=== PATIENT | female | born 1980 | race Hispanic/Latino ===

== ENCOUNTER 2022-09-29 13:10 | Emergency (ER) | payer SELFPAY ==
[2022-09-29 13:29] VITALS: BP 101/68; PULSE 80; RESP 16; TEMP 36.3; O2SAT 99
--- NOTE | 2022-09-29 13:47 | ED.URI ---
HPI - URI/Sore Throat General Chief Complaint: Upper Respiratory Infection Stated Complaint: cough/congestion Time Seen by Provider: 09/29/22 13:50 Source: patient and RN notes reviewed Mode of arrival: ambulatory Limitations: no limitations History of Present Illness HPI Narrative: 42-year-old female presents to the [facility] with complaints of cough and congestion for 2 days. Patient was prescribed steroids and an inhaler at [facility] 2 days ago when her symptoms started. Reports a history of asthma. Patient states that she took a home flu test which she had in her purse which said that she was positive for influenza a and is asking for an antibiotic. Patient states the only reason she is here is for an antibiotic for her positive flu test. Educated patient on flu is a virus, Not treated with antibiotics. Related Data Allergies Allergy/AdvReac Type Severity Reaction Status Date / Time No Known Allergies Allergy Mild Verified 09/29/22 13:40 Review of Systems Review of Systems: All systems reviewed & are unremarkable except as noted in HPI and below Constitutional: Constitutional: Reports no additional constitutional complaints, Reports chills and Reports fever(s) Eyes: Eyes: Reports no additional eye complaints ENT: Reports as per HPI Cardiovascular: Cardiovascular: Reports no additional cardiovascular complaints Respiratory: Respiratory: Reports as per HPI, Reports chest congestion and Reports cough Gastrointestinal: Gastrointestinal: Reports no additional gastrointestinal complaints Musculoskeletal: Musculoskeletal: Reports no additional musculoskeletal complaints Integumentary/Breasts: Skin/Breast: Reports system reviewed and no additional complaints, except as docu Neurologic: Reports system reviewed and no additional complaints, except as documented Psychiatric: Psychiatric: Reports no additional psychiatric complaints Allergic/Immunologic: Allergic/Immunologic: Reports no additional allergic/immunologic complaints PMFSH Past Medical History Medical History Asthma Comments At the time of my signature, I reviewed and agree with the nursing past medical, surgical, social, and family history. There is no relevant family history pertinent to the patient complaint. Exam Const: General: healthy appearing, no acute distress, alert and well nourished Nutritional Appearance: well nourished Orientation/consciousness: patient oriented x3 Limitations: no limitations HENMT: Head: normal to inspection Ears: external ears normal, TM's normal bilaterally and EAC's normal Face/Nose/Sinus: Normal external nose present and Normal nares present Face and sinus: normal facial exam Mouth: Yes Normal oral and palatal mucosa present, Yes lip normal and Yes moist mucous membranes Throat: posterior oropharynx normal and uvula midline Eyes: General: appearance normal, both eyes and all related structures Conjunctivae: conjunctivae normal Pupils: Equal, round and reactive pupils present Neck: Neck: normal visual inspection, no lymphadenopathy and no meningeal signs Chest: Chest palpation & inspection: normal inspection of the chest Resp: Effort & Inspection: normal respiratory effort and no use of accessory muscles Auscultation: clear to auscultation bilaterally, no crackles, no rales, no rhonchi and no wheezes Cardio: Rate: regular rate Rhythm: regular rhythm Skin: General skin exam: normal color Rashes: no rashes Wounds: no wounds Neuro: General: patient oriented x3, moves all extremities, no meningeal signs and no focal motor deficits Cranial nerves: Yes Equal, round and reactive pupils present Speech: normal speech Gait exam (Neuro): Normal gait present Extrem: General: normal to inspection, full ROM and capillary refill normal Psych: Appearance: grossly normal and well kempt Mental Status: mental status grossly normal Affect: normal affect Attitude:
== END 2022-09-29 14:04 | disposition home or self-care (01) ==
PROVIDERS: Emergency Provider Nurse Practitioner
DX: J11.1 Influenza due to unidentified influenza virus with other respiratory manifestations (principal); J45.909 Unspecified asthma, uncomplicated
CPT/HCPCS: 99213; G0463

== ENCOUNTER 2023-03-29 18:46 | Emergency (ER) | payer SELFPAY ==
[2023-03-29] VITALS (14 sets, daily range): BP systolic 103–117; BP diastolic 65–83; PULSE 67–89; RESP 14–21; TEMP 36.6; O2SAT 91–100
--- NOTE | ~2023-03-29 | XR_ITS ---
EXAMINATION: XR chest 2V Exam Date/Time: 03/29/2023 20:00 CDT HISTORY: chest pain LEFT SIDE 1 WK, HX OF ASTHMA Comparison: None available. RESULT: Lines, tubes, and devices: None. Lungs and pleura: Clear. Cardiomediastinal silhouette: Normal. Other: No acute osseous or upper abdominal finding. IMPRESSION: No acute cardiopulmonary process. Reviewed, dictated and finalized at location K.
--- NOTE | 2023-03-29 18:53 | PC.NURSE ---
pt checked in with multiple complaints. Has concerns regarding episodes of dizziness, sharp cp that comes and goes. Pt also reports LANDERS at times and periods of dyspnea, s/s x 1 week. No distress at registration. SPO2 100% RA HR 62
--- NOTE | 2023-03-29 19:14 | ECG_ITS ---
Measurements Intervals [place] Rate: 84 P: 51 SC: 132 QRS: -19 QRSD: 73 T: 57 QT: 365 QTc: 432 Interpretive Statements SINUS RHYTHM DELAYED PRECORDIAL R/S TRANSITION BORDERLINE ECG NO PREVIOUS ECG AVAILABLE FOR COMPARISON Electronically Signed On 03-29-2023 21:09:29 CDT by Chris Chávez D.O.
[2023-03-29 19:26] LABS: Basophils Percent Auto 0.5 % (0.2-1.2); Eosinophils Absolute Auto 0.1 K/mm3 (0-0.3); Eosinophils Percent Auto 1.1 % (0-4.4); Hematocrit 36.3 % (37.0-47.0); Hemoglobin 11.2 g/dL (12.0-15.0); Immature Granulocyte Absolute 0.01 K/mm3 (0.00-0.031); Immature Granulocyte Percent A 0.2 % (0-0.5); Lymphocytes Absolute Auto 2.11 K/mm3 (0.9-3.2); Lymphocytes Percent Auto 32.3 % (18.3-44.2); Mean Corpuscular HGB Conc 30.9 g/dl (32-36); Mean Corpuscular Hemoglobin 26.4 pg (26-34); Mean Corpuscular Volume 85.4 fl (80-100); Mean Platelet Volume 10.8 fl (7.4-10.4); Monocytes Absolute Auto 0.4 K/mm3 (0.1-0.6); Neutrophils Absolute Auto 3.9 K/mm3 (1.3-6.7); Neutrophils Percent Auto 59.9 % (45.5-73.1); Platelet Count Result 276 k/mm3 (150-375); Red Blood Count 4.25 M/mm3 (4.2-5.4); Red Cell Distribution Width 16.2 % (11.5-14.5); White Blood Count 6.5 K/mm3 (4.5-10.0)
[2023-03-29 19:35] LABS: Alanine Aminotransferase 18 U/L (6-35); Albumin Level 4.6 g/dL (3.5-5.1); Alkaline Phosphatase 74 U/L (38-126); Anion Gap 12 mmol/L (8-16); Aspartate Amino Transferase 25 U/L (14-36); Bilirubin,Total 0.4 mg/dL (0.2-1.3); Blood Urea Nitrogen 13 mg/dL (7-17); Calcium 9.4 mg/dL (8.4-10.2); Carbon Dioxide 25 mmol/L (22-30); Chloride 105 mmol/L (98-107); Estimated CRCL calculation 92 ml/min; Estimated Glomerular Filt Rate > 60; Glucose 147 mg/dL (65-110); Lipase 95 U/L (23-300); Potassium 3.5 mmol/L (3.4-5.0); Sodium 142 mmol/L (137-145)
[2023-03-29 19:41] LABS: Prothrombin Time 13.3 Seconds (11.1-14.7)
[2023-03-29 19:42] LABS: Partial Thromboplastin Time 26.9 SECONDS (22.3-36.8)
[2023-03-29 19:47] LABS: Troponin I < 0.012 ng/mL (0.000-0.034)
--- NOTE | 2023-03-29 22:21 | ED.DIZZY ---
HPI - Dizziness General Chief Complaint: Dizziness <TRAY Rao Last Filed: 03/30/23 02:48> Stated Complaint: dyspnea <TRAY Rao Last Filed: 03/30/23 02:48> Time Seen by Provider: 03/29/23 22:00 <TRAY Rao Last Filed: 03/30/23 02:48> Source: patient <TRAY Rao Last Filed: 03/30/23 02:48> Mode of arrival: ambulatory <TRAY Rao Last Filed: 03/30/23 02:48> Limitations: no limitations <TRAY Rao Last Filed: 03/30/23 02:48> History of Present Illness HPI Narrative: Patient is Citizen [place]speaking and cousin is interpreting. This is a 43-year-old female who presents to the ED with multiple complaints. Patient states the symptoms have been going on for about a week. Reports intermittent episodes of dizziness accompanied with chest pain and shortness of breath. Patient also reports hot flashes. Patient states that there is a pain in the central chest that radiates into the left arm and left jaw. Patient also describes numbness and tingling in the left arm and left side of the face when this comes on. She states that she gets especially dizzy when she stands up from a chair. She feels that standing up too fast may be exacerbating her symptoms. <TRAY Rao Last Filed: 03/30/23 02:48> Related Data Allergies/Adverse Reactions: Allergies Allergy/AdvReac Type Severity Reaction Status Date / Time No Known Allergies Allergy Mild Verified 09/29/22 13:40 <TRAY Rao Last Filed: 03/30/23 02:48> Review of Systems Review of Systems: CONSTITUTIONAL: See HPI EYES: Denies visual changes, redness, or discharge. ENT: Denies rhinorrhea, congestion, sore throat, or otalgia. CARDIOVASCULAR: See HPI RESPIRATORY: See HPI GASTROINTESTINAL: Denies abdominal pain, nausea, vomiting, or diarrhea. GENITOURINARY: Denies dysuria or hematuria. SKIN: Denies rash or itching. MUSCULOSKELETAL: Denies back pain, joint pain, or myalgia. NEUROLOGIC: See HPI PSYCHIATRIC: Denies anxiety or depression. <Delon Roque PA-C - Last Filed: 03/30/23 02:48> [facility] Past Medical History Medical History: Medical History Asthma <Delon Roque PA-C - Last Filed: 03/30/23 02:48> Exam Narrative: GENERAL: Well-appearing, well-nourished, and in no acute distress. No diaphoresis. HEAD: Normocephalic, atraumatic. EYES: PERRLA and EOMI. ENT: Nares clear, no rhinorrhea or epistaxis. Mucous membranes moist. Oropharynx without tonsillar hypertrophy exudate or other lesions. NECK: Supple. No adenopathy or masses. CHEST: No respiratory distress. Clear to auscultation. No wheezes rales or rhonchi. HEART: Regular rate and rhythm. No murmur heard. Normal peripheral pulses. ABDOMEN: Soft, nontender, nondistended, normal active bowel sounds. EXTREMITIES: Normal range of motion. No edema. SKIN: Warm, dry, no rash. NEURO: Alert and oriented x3. No focal deficits. PSYCH: Normal mood and affect. <Delon Roque PA-C - Last Filed: 03/30/23 02:48> Course Course Emergency Course: heart score 0 PERC negative <Delon Roque PA-C - Last Filed: 03/30/23 02:48> [employer]/PA Physician Supervision This is a was performed by both a physician and an APC. I performed all aspects of the MDM as documented w/ the following additions: 43-year-old female presenting with lightheadedness and chest pain. Found to be orthostatic. Patient was fluid resuscitated, cardiac workup was negative. Patient improved. discharge with close outpatient follow-upAll questions answered. Patient in agreement w/ disposition. <Primo Gonzalez MD - Last Filed: 04/03/23 07:22> Vital Signs Vital signs: Vital Signs Temperature 97.8 F 03/29/23 19:08 Pulse Rate 89 03/29/23 19:08 Respiratory Rate 16 03/29/23 19:08 Blood Pressure 112/65 03/29/23 19:08 Pulse Oximetry 100 03/29/23
[2023-03-29 22:32] LABS: Troponin I < 0.012 ng/mL (0.000-0.034)
[2023-03-29] MEDS: SODIUM CHLORIDE 0.9% IV 1,000 ML 999 ML IV CONT ×2 (22:38→23:29)
[2023-03-29] MEDS: MECLIZINE HCL 25 MG TABLET PO (22:54)
[2023-03-29 23:25] LABS: D Dimer 0.35 ug/mL (<0.48)
[2023-03-30 00:07] VITALS: PULSE 72; RESP 22
== END 2023-03-30 00:22 | disposition home or self-care (01) ==
PROVIDERS: Emergency Medicine; Emergency Provider Physician Assistant
DX: I95.1 Orthostatic hypotension (principal); F41.9 Anxiety disorder, unspecified; J45.909 Unspecified asthma, uncomplicated; R94.31 Abnormal electrocardiogram [ECG] [EKG]
CPT/HCPCS: 36415; 71046; 80053; 83690; 84484; 85025; 85380; 85610; 85730; 93005; 96360; 96361; 99284; A9270; J7030

== ENCOUNTER 2023-06-17 12:57 | Emergency (ER) | payer SELFPAY ==
[2023-06-17 13:02] VITALS: BP 118/60; PULSE 86; RESP 20; TEMP 36.6; O2SAT 100
--- NOTE | 2023-06-17 15:29 | ED.FEMALEGU ---
HPI - Female Genitourinary General Chief complaint: Vaginal Bleeding Stated complaint: vaginal bleeding, ab pain Time Seen by Provider: 06/17/23 15:04 History of Present Illness HPI Narrative: 43-year-old female presenting with heavy uterine bleeding, with cramping, ongoing since yesterday with clots, no lightheadedness or chest pain or difficulty breathing, her last period had been December. She does not know of any history of fibroids, she had been told she had an ovarian cyst in the past, history of tubal ligation Related Data Allergies Allergy/AdvReac Type Severity Reaction Status Date / Time No Known Allergies Allergy Mild Verified 09/29/22 13:40 Review of Systems Review of Systems: CONST: No fever. HEENT: No sore throat C/V: No chest pain RESP: No cough GI: Pelvic cramping : Vaginal bleeding. M/S: No joint pain. SKIN: No rash. NEURO: [No lightheadedness, headache or focal numbness or weakness] PSYCH: [No depression] [facility] Past Medical History Medical History Asthma Exam Narrative: EXAMINATION OF ORGAN SYSTEMS/BODY AREAS: Constitutional: Vital signs per nursing GENERAL:[No acute distress, non-toxic appearing.] HEAD: Normal with no signs of head trauma. EYES: EOMI, conjunctiva normal ENT: Hearing grossly intact LUNGS: Nonlabored breathing. HEART: [Regular rate and rhythm] ABD: [Soft], [nontender to palpation] : No cervical motion or adnexal tenderness, small amount of active vaginal bleeding without large hemorrhage EXT: Normal range of motion SKIN: [No rashes or lesions.] NEURO: [Alert and oriented x 3. No gross focal sensory or strength deficits.] PSYCH: Normal affect Course Vital Signs Vital signs: Vital Signs Temperature 97.9 F 06/17/23 13:02 Pulse Rate 86 06/17/23 13:02 Respiratory Rate 20 06/17/23 13:02 Blood Pressure 118/60 06/17/23 13:02 Pulse Oximetry 100 06/17/23 13:02 Oxygen Delivery Room Air 06/17/23 13:02 Temperature 97.9 F 06/17/23 13:02 Pulse Rate 80 06/17/23 17:00 Respiratory Rate 16 06/17/23 17:00 Blood Pressure 115/76 06/17/23 17:00 Pulse Oximetry 100 06/17/23 17:00 Oxygen Delivery Room Air 06/17/23 13:02 MDM - Female Genitourinary MDM Narrative Medical decision making narrative: 43-year-old female presenting with heavy vaginal bleeding, she had not had a period since December, thinks she may be menopausal. No systemic symptoms. Vital signs are stable, hemoglobin is stable here, given she is not having large amount of hemorrhage, I do feel she is stable for discharge at this time with follow-up to OBGYN and strict return precautions discussed with patient in person and on paper. Lab Data 06/17/23 15:27 06/17/23 15:27 Labs: Lab Results 06/17/23 Range/Units 15:27 WBC 6.6 (4.5-10.0) K/mm3 RBC 4.24 (4.2-5.4) M/mm3 Hgb 11.8 L (12.0-15.0) g/dL Hct 37.6 (37.0-47.0) % MCV 88.7 (80-100) fl MCH 27.8 (26-34) pg MCHC 31.4 L (32-36) g/dl RDW 15.1 H (11.5-14.5) % Plt Count 266 (150-375) k/mm3 MPV 10.8 H (7.4-10.4) fl Immature Gran % (Auto) 0.3 (0-0.5) % Neut % (Auto) 56.5 (45.5-73.1) % Lymph % (Auto) 33.0 (18.3-44.2) % [place] % (Auto) 8.8 H (2.6-8.5) % Eos % (Auto) 0.8 (0-4.4) % Baso % (Auto) 0.6 (0.2-1.2) % Lymph # (Auto) 2.18 (0.9-3.2) K/mm3 [place] # (Auto) 0.6 (0.1-0.6) K/mm3 Eos # (Auto) 0.1 (0-0.3) K/mm3 Baso # (Auto) 0.0 (0.0-0.1) K/mm3 Abs Immat Gran (auto) 0.02 (0.00-0.031) K/mm3 Absolute Neuts (auto) 3.7 (1.3-6.7) K/mm3 Absolute Nucleated RBC 0.0 (0.0-0.012) K/mm3 Nucleated RBC % 0.0 (0.0-0.2) % PT 13.0 (11.1-14.7) Seconds INR 0.9 APTT 27.2 (22.3-36.8) SECONDS Sodium 139 (137-145) mmol/L Potassium 3.7 (3.4-5.0) mmol/L Chloride 101 (98-107) mmol/L Carbon Dioxide 33 H (22-30) mmol/L Anion Gap 5 L (8-16) mmol/L BUN 11 (7-17) mg/
[2023-06-17 15:34] LABS: Basophils Percent Auto 0.6 % (0.2-1.2); Eosinophils Absolute Auto 0.1 K/mm3 (0-0.3); Eosinophils Percent Auto 0.8 % (0-4.4); Hematocrit 37.6 % (37.0-47.0); Hemoglobin 11.8 g/dL (12.0-15.0); Immature Granulocyte Absolute 0.02 K/mm3 (0.00-0.031); Immature Granulocyte Percent A 0.3 % (0-0.5); Lymphocytes Absolute Auto 2.18 K/mm3 (0.9-3.2); Mean Corpuscular HGB Conc 31.4 g/dl (32-36); Mean Corpuscular Hemoglobin 27.8 pg (26-34); Mean Corpuscular Volume 88.7 fl (80-100); Mean Platelet Volume 10.8 fl (7.4-10.4); Monocytes Absolute Auto 0.6 K/mm3 (0.1-0.6); Monocytes Percent Auto 8.8 % (2.6-8.5); Neutrophils Absolute Auto 3.7 K/mm3 (1.3-6.7); Neutrophils Percent Auto 56.5 % (45.5-73.1); Platelet Count Result 266 k/mm3 (150-375); Red Blood Count 4.24 M/mm3 (4.2-5.4); Red Cell Distribution Width 15.1 % (11.5-14.5); White Blood Count 6.6 K/mm3 (4.5-10.0)
[2023-06-17 15:45] LABS: Alanine Aminotransferase 15 U/L (6-35); Albumin Level 4.6 g/dL (3.5-5.1); Alkaline Phosphatase 76 U/L (38-126); Anion Gap 5 mmol/L (8-16); Aspartate Amino Transferase 25 U/L (14-36); Bilirubin,Total 0.4 mg/dL (0.2-1.3); Blood Urea Nitrogen 11 mg/dL (7-17); Calcium 9.3 mg/dL (8.4-10.2); Carbon Dioxide 33 mmol/L (22-30); Chloride 101 mmol/L (98-107); Estimated CRCL calculation 107 ml/min; Estimated Glomerular Filt Rate > 60; Glucose 82 mg/dL (65-110); Potassium 3.7 mmol/L (3.4-5.0); Sodium 139 mmol/L (137-145)
[2023-06-17 15:48] LABS: INR 0.9; Partial Thromboplastin Time 27.2 SECONDS (22.3-36.8)
[2023-06-17] MEDS: KETOROLAC 15 MG/ML VIAL (*BKC) IV PUSH (16:50)
[2023-06-17 17:00] VITALS: BP 115/76; PULSE 80; RESP 16; O2SAT 100
== END 2023-06-17 17:00 | disposition home or self-care (01) ==
PROVIDERS: Emergency Provider Emergency Medicine
DX: N93.9 Abnormal uterine and vaginal bleeding, unspecified (principal); J45.909 Unspecified asthma, uncomplicated
CPT/HCPCS: 36415; 80053; 81025; 85025; 85610; 85730; 86850; 86900; 86901; 96374; 99284; J1885